=== PATIENT | female | born 1950 | race Caucasian/White ===

== ENCOUNTER 2024-05-20 11:37 | Day surgery (SDC) | payer MEDICARE, BC ==
[~2024-05-20] VITALS: Ht 162.6 cm; Wt 63.2 kg
[2024-05-20] VITALS (15 sets, daily range): BP systolic 132–165; BP diastolic 80–175; PULSE 81–110; RESP 10–18; TEMP 97.6; O2SAT 96–100
[~2024-05-20 11:37] MED LIST: APIX5TAB5 PO; CALCIUM/D3 PO; LEVO50TA PO; LUTE1CAP5 PO; OLME20TA69 PO; PROBIOTIC PO; ROSU10TA72 PO; [UNRECOGNIZED DRUG - OTHER] PO
[2024-05-20 12:27] LABS: BASOPHILS % (AUTO) 0.9 % (0-1); EOSINOPHILS % (AUTO) 1.1 % (0-6); HEMATOCRIT 40.4 % (35.0-45.0); HEMOGLOBIN 13.5 g/dl (12.0-16.0); LYMPHOCYTES # (AUTO) 1.8 X10'3 (1.1-4.8); LYMPHOCYTES % (AUTO) 45.1 % (21-51); MEAN CORPUSCULAR HEMOGLOBIN 32.9 PG (27.0-31.0); MEAN CORPUSCULAR HGB CONC 33.5 g/dL (33.0-36.5); MEAN CORPUSCULAR VOLUME 98.1 FL (78-98); MEAN PLATELET VOLUME 7.2 FL (7.4-10.4); MONOCYTES # (AUTO) 0.3 X10'3 (0-0.9); MONOCYTES % (AUTO) 8.3 % (2-12); NEUTROPHILS # (AUTO) 1.7 X10'3 (1.8-7.7); NEUTROPHILS % (AUTO) 44.6 % (42-75); PLATELET COUNT 227 X10'3 (140-440); RED BLOOD COUNT 4.12 X10'6 (4.20-5.60); RED CELL DISTRIBUTION WIDTH 13.4 % (11.5-14.5); WHITE BLOOD COUNT 3.9 X10'3 (4.5-11.0)
[2024-05-20 12:47] LABS: ALBUMIN 4.3 G/DL (3.4-5.0); ANION GAP 7 (8-16); APTT 32 SECONDS (22-32); BLOOD UREA NITROGEN 16 MG/DL (7-18); BUN/CREATININE RATIO 21.6 (10.0-20.0); CALCIUM 9.2 MG/DL (8.5-10.1); CHLORIDE 104 MMOL/L (99-107); CREATININE 0.74 MG/DL (0.40-0.90); GLUCOSE 89 MG/DL (70-104); INR 1.2 INR; PROTHROMBIN TIME 12.8 SECONDS (9.0-12.0); SODIUM 139 MMOL/L (135-145); TOTAL CARBON DIOXIDE 27.9 MMOL/L (24-32); eCRCL 59 ML/MIN; eGFR 77 ML/MIN
[2024-05-20] MEDS: MIDAZolam 1mg/ml 10ml vial IV ONE (13:29)
[2024-05-20] MEDS: normal saline 1000ml 1,000 ML IV SCH (13:29)
[2024-05-20] MEDS: fentaNYL/PF 50MCG/1 ML 2ML syringe IV ONE (13:29)
[2024-05-20] MEDS ORDERED: ASPI-611 PO (14:33)
[2024-05-20] MEDS ORDERED: CLOP75TA33 PO (14:33)
== END 2024-05-20 14:55 | disposition home or self-care (01) ==
LOC: SSTAY O 11:37
PROVIDERS: ATTEND Student in an Organized Health Care Education/Training Program
DX: I48.0 Paroxysmal atrial fibrillation (principal); I11.9 Hypertensive heart disease without heart failure; E78.5 Hyperlipidemia, unspecified; E03.9 Hypothyroidism, unspecified; Z85.3 Personal history of malignant neoplasm of breast; Z79.01 Long term (current) use of anticoagulants; Z79.890 Hormone replacement therapy; Z79.899 Other long term (current) drug therapy; Z88.8 Allergy status to other drugs, medicaments and biological substances
CPT/HCPCS: 36415; 80048; 85025; 85610; 85730; 93325; 94760; C8925; J2250; J3010; J7030; 93312